=== PATIENT | female | born 1965 | race Caucasian/White ===

== ENCOUNTER 2017-01-24 16:43 | Emergency (ER) | payer MEDICAID ==
[2017-01-24 16:43] VITALS: BMI 23.3
[2017-01-24 17:04] VITALS: BP 136/66; PULSE 74; RESP 20; TEMP 98; O2SAT 98
--- NOTE | 2017-01-24 18:19 | ED PDOC ---
Upper Extremity Pain/Injury Time Seen by Provider: 01/24/17 17:09 Chief Complaint (Nursing): Upper Extremity Problem/Injury Chief Complaint (Provider): shoulder pain History Per: Patient History/Exam Limitations: no limitations Additional Complaint(s): 51yo f in Ed for eval of right shoulder and neck pain x1 month unrelieved with motrin. has not laura pmd. states that she notes it worse in the AM upon awaking Past Medical History Vital Signs: Last Vital Signs Temp 98 F 01/24/17 16:58 Pulse 74 01/24/17 16:58 Resp 20 01/24/17 16:58 BP 136/66 01/24/17 16:58 Pulse Ox 98 01/24/17 16:58 - Medical History PMH: Anxiety Denies: Chronic Kidney Disease - Surgical History Surgical History: - Family History Family History: States: Unknown Family Hx - Home Medications Home Medications: Ambulatory Orders Medication Instructions Recorded Acetaminophen [Tylenol 325mg tab] 650 mg PO PRN PRN 01/20/16 Famotidine [Pepcid] 20 mg PO BID PRN #10 tab 06/04/16 Metoclopramide HCl [Reglan] 10 mg PO Q8 PRN #30 tablet 06/13/16 Cyclobenzaprine [Cyclobenzaprine 10 mg PO BID #14 tab 01/24/17 HCl] Ibuprofen [Motrin] 400 mg PO Q6 #30 tab 01/24/17 - Allergies Allergies/Adverse Reactions: Allergies Allergy/AdvReac Type Severity Reaction Status Date / Time No Known Allergies Allergy Verified 01/24/17 16:58 - ECG O2 Sat by Pulse Oximetry: 98 Medical Decision Making Medical Decision Making: pt with normal appearing xray of shoulder dx: muscle spasm rx: flexril and motrin f/u with PTx and with pmd. Disposition - Clinical Impression Clinical Impression: Spasm - Patient ED Disposition Is Patient to be Admitted: No Counseled Patient/Family Regarding: Studies Performed, Diagnosis, Need For Followup, Rx Given - Disposition Disposition: Routine/Home Disposition Time: 18:29 Condition: STABLE Prescriptions: Cyclobenzaprine [Cyclobenzaprine HCl] 10 mg PO BID #14 tab Ibuprofen [Motrin] 400 mg PO Q6 #30 tab Instructions: Muscle Spasm (ED) Forms: [facility] ED School/Work Excuse Print Language: AZERI
--- NOTE | 2017-01-25 10:00 | RAD ---
PROCEDURE: Radiographs of the Left Shoulder HISTORY: Injury COMPARISON: No prior. FINDINGS: BONES: Bone alignment and mineralization are normal. There is no acute fracture or bone destruction JOINTS: Normal. Glenohumeral and acromioclavicular joints preserved. No osteoarthritis. SOFT TISSUES: Normal. OTHER FINDINGS: None. IMPRESSION: No acute fracture or dislocation.
== END 2017-01-24 19:39 | disposition home or self-care (01) ==
LOC: H.ER 16:43
DX: M62.838 Other muscle spasm (principal)
CPT/HCPCS: 73030; 96372; 99282; J1885

== ENCOUNTER 2017-07-19 23:16 | Emergency (ER) | payer OTHER ==
[2017-07-19 23:17] VITALS: BMI 23.3
[2017-07-19 23:39] VITALS: BP 145/88; PULSE 65; RESP 16; TEMP 96.2; O2SAT 100
[2017-07-20] MEDS ORDERED: Lidocaine 1% Inj (20ml) IJ ONE (00:52)
--- NOTE | 2017-07-20 00:56 | ED PDOC ---
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 Patient states she was unpacking a box at home and pull out a metal candle samayoa but states the edges are sharp and she grabbed it in a way that it sliced her fingers. Denies numbness/weakness right upper extremity , limitation of movement. Tetanus up to date. Quality Of Symptoms: Painful Past Medical History Reviewed: Historical Data, Nursing Documentation, Vital Signs Vital Signs: Last Vital Signs Temp 96.2 F L 07/19/17 23:34 Pulse 65 07/19/17 23:34 Resp 16 07/19/17 23:34 BP 145/88 07/19/17 23:34 Pulse Ox 100 07/19/17 23:34 - Medical History PMH: Anxiety Denies: Chronic Kidney Disease - Surgical History Surgical History: - Family History Family History: States: Unknown Family Hx - Home Medications Home Medications: Ambulatory Orders Medication Instructions Recorded Acetaminophen [Tylenol 325mg tab] 650 mg PO PRN PRN 01/20/16 Famotidine [Pepcid] 20 mg PO BID PRN #10 tab 06/04/16 Metoclopramide HCl [Reglan] 10 mg PO Q8 PRN #30 tablet 06/13/16 Cyclobenzaprine [Cyclobenzaprine 10 mg PO BID #14 tab 01/24/17 HCl] Ibuprofen [Motrin] 400 mg PO Q6 #30 tab 01/24/17 - Allergies Allergies/Adverse Reactions: Allergies Allergy/AdvReac Type Severity Reaction Status Date / Time No Known Allergies Allergy Verified 07/19/17 23:34 Review of Systems ROS Statement: Except As Marked, All Systems Reviewed And Found Negative Musculoskeletal: Positive for: Hand Pain Physical Exam - Reviewed Nursing Documentation Reviewed: Yes Vital Signs Reviewed: Yes - Physical Exam Appears: Positive for: Well, Non-toxic, No Acute Distress Head Exam: Positive for: ATRAUMATIC, NORMAL INSPECTION, NORMOCEPHALIC Skin: Positive for: Normal Color Eye Exam: Positive for: Normal appearance Pulses-Radial (L): 2+ Pulses-Radial (R): 2+ Extremity: Positive for: Normal ROM, Capillary Refill (<2 sec b/l UE), Other ( skin avulsion distal palmar right hand 2nd digit. No active bleeding. 2.5cm wedge laceration distal palmar right hand 3rd digit, with + oozing. 2cm curvilinear shape laceration distal palmar right hand 4th digit. Distal NV, motor intact and equal bilateral upper extremities) Neurologic/Psych: Positive for: Alert, Oriented. Negative for: Motor/Sensory Deficits - ECG O2 Sat by Pulse Oximetry: 100 - Progress ED Course And Treament: Verbal consent given by patient for nitrous oxide administration. Procedure: Wound Repair - Consent Obtained Consent obtained: Verbal - Performed by Performed by: Mid-level Provider - Indications Indication(s):: Laceration - Location Finger:: Right, Middle, Ring Shape:: Curvilinear, Wedge - Anesthetic Technique Local/Regional Anesthetic:: Lidocaine 1% - Debris Debris:: None - Irrigated Irrigated with ml of normal saline: 500mL - Complexity Complexity:: Simple (one layer) - Wound repair method Sutures:: # (14), Size (4'0), Type (nylon), Technique (interrupted) - Muscle repiar layer closed with Muscle repair layer closed with:: Wound well approximated, Abx ointment applied , Dressing applied (gelfoam/pressure dressing applied to skin avulsion of right hand 2nd digit), Tetanus up to date - Patient tolerated procedure Patient Tolerated Procedure:: Well Medical Decision Making Medical Decision Making: Patient educated on wound care, rx tramadol provided. Advised wound check 2 days. Suture removal 8-10 days. REturn to ED for signs of infection as discussed or other concerning symptoms. Disposition - Clinical Impression Clinical Impression: Finger laceration, Avulsion of skin of finger - Patient ED Disposition Is Patient to be Admitted: No Counseled Patient/Family Regarding: Diagnosis, Need For Followup - Disposition Referrals: Pietro Villegas MD [Primary Care Provider] - Disposition: Routine/Home Disposition Time: 03:54 Condition: STABLE Additional Instructions: Eliminacin de la sutura en 8-10 erickson Instructions: Care For Your Stitches (ED), Laceration (ED), Skin Avulsion (ED) Print Language: ARMENIAN
[2017-07-20] MEDS ORDERED: Lidocaine 1% Inj (20ml) ONE (00:59)
[2017-07-20] MEDS ORDERED: Absorbable Gelatin Sponge Size 12-7 ONE (01:44)
[2017-07-20] MEDS ORDERED: Ketamine 50 mg/ml Inj (10 ml) IV ONE (02:31)
[2017-07-20] MEDS ORDERED: Oxycodone/Acetaminophen 5/325 mg Tab PO ONE (03:50)
[2017-07-20] MEDS ORDERED: Oxycodone/Acetaminophen 5/325 mg Tab ONE (04:21)
== END 2017-07-20 04:45 | disposition home or self-care (01) ==
LOC: H.ER 23:16
DX: S61.411A Laceration without foreign body of right hand, initial encounter (principal); W25.XXXA Contact with sharp glass, initial encounter; Y92.89 Other specified places as the place of occurrence of the external cause

== ENCOUNTER 2017-07-23 20:57 | Emergency (ER) | payer OTHER ==
[2017-07-23 20:57] VITALS: BMI 23.3
[2017-07-23 21:08] VITALS: BP 134/78; PULSE 70; RESP 16; TEMP 98.1; O2SAT 100
--- NOTE | 2017-07-23 21:36 | ED PDOC ---
HPI: Wound Care - HPI Time Seen by Provider: 07/23/17 21:15 Chief Complaint (Nursing): Wound Check Chief Complaint (Provider): Wound Check History Per: Patient Exam Limitations: no limitations Current Symptoms Are (Timing): Still Present Additional Complaint(s): 52 female presents to the emergency department for a wound check up located to the index, middle, and ring finger of the right hand. Patient had 14 stitches placed in on 07/19/2017. Advised to return back today, 07/23/2017, for an evaluation of the wound. Reports taking Tramadol for the relief of pain yesterday. Denies taking medications today or any further medical complaints. Past Medical History Reviewed: Historical Data, Nursing Documentation, Vital Signs Vital Signs: Last Vital Signs Temp 98.1 F 07/23/17 21:06 Pulse 70 07/23/17 21:06 Resp 16 07/23/17 21:06 BP 134/78 07/23/17 21:06 Pulse Ox 100 07/23/17 21:06 - Medical History PMH: Anxiety Denies: Chronic Kidney Disease - Surgical History Surgical History: - Family History Family History: States: Unknown Family Hx - Home Medications Home Medications: Ambulatory Orders Medication Instructions Recorded Acetaminophen [Tylenol 325mg tab] 650 mg PO PRN PRN 01/20/16 Famotidine [Pepcid] 20 mg PO BID PRN #10 tab 06/04/16 Metoclopramide HCl [Reglan] 10 mg PO Q8 PRN #30 tablet 06/13/16 Cyclobenzaprine [Cyclobenzaprine 10 mg PO BID #14 tab 01/24/17 HCl] Ibuprofen [Motrin] 400 mg PO Q6 #30 tab 01/24/17 - Allergies Allergies/Adverse Reactions: Allergies Allergy/AdvReac Type Severity Reaction Status Date / Time No Known Allergies Allergy Verified 07/19/17 23:34 Review of Systems ROS Statement: Except As Marked, All Systems Reviewed And Found Negative Skin: Positive for: Other (Wound check up) Physical Exam - Reviewed Nursing Documentation Reviewed: Yes Vital Signs Reviewed: Yes - Physical Exam Appears: Positive for: Non-toxic, No Acute Distress Head Exam: Positive for: ATRAUMATIC, NORMAL INSPECTION, NORMOCEPHALIC Extremity: Positive for: Normal ROM (Right 2nd, 3rd, and 4th digit laceration repaired. ). Negative for: Other (No drainage, surrounding erythema, or edema. ) Neurologic/Psych: Positive for: Alert, Oriented (x3) - ECG O2 Sat by Pulse Oximetry: 100 (RA) Pulse Ox Interpretation: Normal Medical Decision Making Medical Decision Making: Time: 21:33 Initial impression: Wound Check Up Initial plan: --Motrin 600 mg PO --Patient instructed to return back to the ER in 5 days to remove sutures. LAceration sites cleaned and dressed by proposal writer Scribe Attestation: Documented by Jessy Reddy, acting as a scribe for Esther Santizo PA-C Provider Scribe Attestation: All medical record entries made by the Scribe were at my direction and personally dictated by me. I have reviewed the chart and agree that the record accurately reflects my personal performance of the history, physical exam, medical decision making, and the department course for this patient. I have also personally directed, reviewed, and agree with the discharge instructions and disposition. Disposition - Clinical Impression Clinical Impression: Encounter for wound re-check - Patient ED Disposition Is Patient to be Admitted: No - Disposition Disposition: Routine/Home Disposition Time: 22:18 Condition: STABLE Instructions: Acute Wound Care (ED) Forms: [facility] (Tajik) - POA Present On Arrival: None
== END 2017-07-23 22:09 | disposition home or self-care (01) ==
LOC: H.ER 20:57
DX: Z48.00 Encounter for change or removal of nonsurgical wound dressing (principal)

== ENCOUNTER 2017-07-28 10:09 | Emergency (ER) | payer OTHER ==
[2017-07-28 10:10] VITALS: BMI 23.3
[2017-07-28 10:16] VITALS: BP 142/79; PULSE 107; TEMP 98.6
[2017-07-28 10:22] VITALS: RESP 16; O2SAT 99
--- NOTE | 2017-07-28 10:41 | ED PDOC ---
HPI: Wound Care - HPI Time Seen by Provider: 07/28/17 10:18 Chief Complaint (Nursing): Suture/Staple Removal Chief Complaint (Provider): Suture removal History Per: Patient Additional Complaint(s): 52 yo female, PMH of anxiety, presents to ED for wound check and suture removal. Sutures placed on 07/19. No complaints at this time. Past Medical History Reviewed: Nursing Documentation, Vital Signs Vital Signs: Last Vital Signs Temp 98.6 F 07/28/17 10:21 Pulse 107 H 07/28/17 10:21 Resp 16 07/28/17 10:21 BP 142/79 07/28/17 10:21 Pulse Ox 99 07/28/17 10:21 - Medical History PMH: Anxiety Denies: Chronic Kidney Disease - Surgical History Surgical History: - Family History Family History: States: Unknown Family Hx - Living Arrangements Living Arrangements: With Family - Social History Current smoker - smoking cessation education provided: No Alcohol: None Drugs: Denies - Home Medications Home Medications: Ambulatory Orders Medication Instructions Recorded Acetaminophen [Tylenol 325mg tab] 650 mg PO PRN PRN 01/20/16 Famotidine [Pepcid] 20 mg PO BID PRN #10 tab 06/04/16 Metoclopramide HCl [Reglan] 10 mg PO Q8 PRN #30 tablet 06/13/16 Cyclobenzaprine [Cyclobenzaprine 10 mg PO BID #14 tab 01/24/17 HCl] Ibuprofen [Motrin] 400 mg PO Q6 #30 tab 01/24/17 - Allergies Allergies/Adverse Reactions: Allergies Allergy/AdvReac Type Severity Reaction Status Date / Time No Known Allergies Allergy Verified 07/19/17 23:34 Review of Systems ROS Statement: Except As Marked, All Systems Reviewed And Found Negative Skin: Positive for: Other (sutured laceration) Physical Exam - Reviewed Nursing Documentation Reviewed: Yes Vital Signs Reviewed: Yes - Physical Exam Appears: Positive for: Well, Non-toxic, No Acute Distress Head Exam: Positive for: ATRAUMATIC, NORMAL INSPECTION, NORMOCEPHALIC Skin: Positive for: Normal Color, Warm, DRY Eye Exam: Positive for: Normal appearance Cardiovascular/Chest: Positive for: Regular Rate, Rhythm Respiratory: Positive for: CNT, Normal Breath Sounds Gastrointestinal/Abdominal: Positive for: Normal Exam Extremity: Positive for: Normal ROM Neurologic/Psych: Positive for: Alert, Oriented Comments: right hand 3-4th digits, sutures intact. scabbing surrounding site. no erythema , edema or drainage. Distal sensation intact - ECG O2 Sat by Pulse Oximetry: 99 Medical Decision Making Medical Decision Making: sutures removed by investment underwriter without difficulty. wound care discussed Disposition - Clinical Impression Clinical Impression: Removal of suture, Visit for wound check - Patient ED Disposition Is Patient to be Admitted: No - Disposition Disposition: Routine/Home Disposition Time: 10:39 Condition: STABLE Instructions: Stitches Removal (ED) Forms: [facility] (Frisian), [facility] ED School/Work Excuse Print Language: VINCENTIAN
== END 2017-07-28 10:43 | disposition home or self-care (01) ==
LOC: H.ER 10:09
DX: Z48.02 Encounter for removal of sutures (principal)